=== PATIENT | male | born 1955 | race Native Hawaiian/Other Pacific Islander ===

== ENCOUNTER 2021-08-16 01:40 | Emergency (ER) | payer OTHER ==
[~2021-08-16] VITALS: Ht 182.9 cm; Wt 99.8 kg
[2021-08-16 02:38] LABS: POTASSIUM 4.3 mmol/L (3.6-5.2)
[2021-08-16 02:43] LABS: PLATELET COUNT 277 K/uL (142-355)
[2021-08-16 06:45] VITALS: BP 115/80; TEMP 98
== END 2021-08-16 06:45 | disposition short-term general hospital (02) ==
LOC: EDBD 01:40 → ED 01:40
PROVIDERS: Emergency Medicine Emergency Medical Services
PROC: 0T9B70Z Drainage of Bladder with Drainage Device, Via Natural or Artificial Opening (ICD-10-PCS; principal; 2021-08-16)
PROC: 0BH17EZ Insertion of Endotracheal Airway into Trachea, Via Natural or Artificial Opening (ICD-10-PCS; 2021-08-16)
PROC: 5A1935Z Respiratory Ventilation, Less than 24 Consecutive Hours (ICD-10-PCS; 2021-08-16)
DX: J96.90 Respiratory failure, unspecified, unspecified whether with hypoxia or hypercapnia (principal); J18.9 Pneumonia, unspecified organism; Z11.52 Encounter for screening for COVID-19
CPT/HCPCS: 36415; 36600; 51702; 80053; 82805; 83880; 84484; 85027; 87635; 93005; 94002; 94003; 96360; 96361; 96365; 96366; 96368; 96375; 99285; J0330; J0696; J1815; J1940; J2250; J3490; U0003

== ENCOUNTER 2021-10-05 01:02 | Emergency (ER) | payer OTHER ==
[~2021-10-05] VITALS: Ht 180.3 cm; Wt 88.5 kg
[2021-10-05 01:02] VITALS: TEMP 97.9
[2021-10-05 01:52] LABS: PLATELET COUNT 429 K/uL (142-355)
[2021-10-05 02:04] LABS: POTASSIUM 3.5 mmol/L (3.6-5.2)
[2021-10-05 02:12] LABS: PARTIAL THROMBOPLASTIN TIME 27.2 SECONDS (24.5-33.6)
[2021-10-05 08:30] VITALS: BP 157/88
== END 2021-10-05 08:59 | disposition home or self-care (01) ==
LOC: ED 01:02
PROVIDERS: Hospitalist
DX: J20.9 Acute bronchitis, unspecified (principal); J44.0 Chronic obstructive pulmonary disease with (acute) lower respiratory infection; J44.1 Chronic obstructive pulmonary disease with (acute) exacerbation; F17.210 Nicotine dependence, cigarettes, uncomplicated
CPT/HCPCS: 36415; 80053; 82550; 83880; 84484; 85027; 85610; 85730; 93005; 94664; 96365; 96375; 99284; J0696; J2405; J2930

== ENCOUNTER 2022-01-11 10:18 | Emergency (ER) | payer OTHER ==
[~2022-01-11] VITALS: Ht 180.3 cm; Wt 88.5 kg
[2022-01-11 11:10] LABS: PARTIAL THROMBOPLASTIN TIME 24.1 SECONDS (24.5-33.6); PLATELET COUNT 219 K/uL (142-355)
[2022-01-11 11:18] LABS: POTASSIUM 6.4 mmol/L (3.6-5.2)
[2022-01-11 13:05] VITALS: TEMP 98
[2022-01-11 13:50] VITALS: BP 123/78
== END 2022-01-11 13:52 | disposition short-term general hospital (02) ==
LOC: ED 10:21
PROVIDERS: Emergency Medicine
DX: I21.4 Non-ST elevation (NSTEMI) myocardial infarction (principal); B17.9 Acute viral hepatitis, unspecified; E87.5 Hyperkalemia; R79.89 Other specified abnormal findings of blood chemistry; I69.854 Hemiplegia and hemiparesis following other cerebrovascular disease affecting left non-dominant side; E11.65 Type 2 diabetes mellitus with hyperglycemia; Z79.4 Long term (current) use of insulin; R82.5 Elevated urine levels of drugs, medicaments and biological substances; F14.90 Cocaine use, unspecified, uncomplicated; Y90.0 Blood alcohol level of less than 20 mg/100 ml; I10 Essential (primary) hypertension; Z11.52 Encounter for screening for COVID-19; F17.210 Nicotine dependence, cigarettes, uncomplicated
CPT/HCPCS: 80053; 80307; 80320; 81000; 83880; 84484; 85027; 85379; 85610; 85730; 87077; 87086; 87088; 87186; 87635; 93005; 96374; 96375; 99284; J1815; J3490; U0003

== ENCOUNTER 2022-03-04 14:48 | Emergency (ER) | payer OTHER ==
[~2022-03-04] VITALS: Ht 180.3 cm; Wt 88.5 kg
[2022-03-04 14:51] VITALS: BP 161/106; TEMP 98.7
[2022-03-04 15:22] LABS: PLATELET COUNT 216 K/uL (142-355)
[2022-03-04 15:31] LABS: POTASSIUM 3.7 mmol/L (3.6-5.2)
[2022-03-04 15:37] LABS: PARTIAL THROMBOPLASTIN TIME 27.2 SECONDS (24.5-33.6)
== END 2022-03-04 16:06 | disposition still patient (30) ==
LOC: ED 14:48
PROVIDERS: Hospitalist
DX: J44.1 Chronic obstructive pulmonary disease with (acute) exacerbation (principal); Z53.29 Procedure and treatment not carried out because of patient's decision for other reasons
CPT/HCPCS: 80053; 82550; 83880; 84484; 85027; 85610; 85730; 93005; 94664; 96360; 96374; 96375; 99284; J2930

== ENCOUNTER 2022-03-09 09:10 | Inpatient (IN) | payer OTHER ==
[~2022-03-09] VITALS: Ht 180.3 cm; Wt 84.9 kg
[2022-03-09] VITALS (9 sets, daily range): BP systolic 95–146; BP diastolic 55–99; TEMP 97.7–98.2; Ht 180.3 cm; Wt 84.9 kg
[2022-03-09 10:04] LABS: PLATELET COUNT 230 K/uL (142-355)
[2022-03-09 10:08] LABS: POTASSIUM 3.9 mmol/L (3.6-5.2)
[2022-03-10] VITALS: BP 139/82; TEMP 98.4
[2022-03-10 04:00] VITALS: BP 147/60; TEMP 98.6
[2022-03-10 04:58] LABS: PLATELET COUNT 225 K/uL (142-355)
[2022-03-10 05:25] LABS: POTASSIUM 4.2 mmol/L (3.6-5.2)
[2022-03-10 08:00] VITALS: BP 133/68; TEMP 97.4
[2022-03-10 12:00] VITALS: BP 124/68; TEMP 98
[2022-03-10 16:00] VITALS: BP 114/75; TEMP 97.7
[2022-03-10 20:00] VITALS: BP 128/84; TEMP 98.1
[2022-03-11] VITALS: BP 127/94; TEMP 97.9
[2022-03-11 04:00] VITALS: BP 120/81; TEMP 98
[2022-03-11 12:00] VITALS: BP 150/90; TEMP 97.6
[2022-03-11] MEDS ORDERED: GABA300C2 PO (15:52)
[2022-03-11] MEDS ORDERED: MOBIC15 MG PO (15:54)
[2022-03-11] MEDS ORDERED: LEVALBUTER0.63 MG/3 INH (15:54)
[2022-03-11] MEDS ORDERED: MONTELUKAST SOD10 MG PO (15:55)
[2022-03-11] MEDS ORDERED: STIOLTO RESPIMA1 AER INH (15:59)
[2022-03-11 16:00] VITALS: BP 150/90; TEMP 97.6
[2022-03-11] MEDS ORDERED: THIAMINE PO (16:00)
[2022-03-11] MEDS ORDERED: PRAVASTATIN PO (16:00)
[2022-03-11] MEDS ORDERED: GLIP10TA55 PO (16:01)
[2022-03-11] MEDS ORDERED: BENZONATATE100 MG PO (16:01)
[2022-03-11] MEDS ORDERED: KP FOLIC ACID1 MG PO (16:02)
[2022-03-11] MEDS ORDERED: METF500T PO (16:03)
[2022-03-11] MEDS ORDERED: MAGNESIUM400 M1 PO (16:04)
[2022-03-11] MEDS ORDERED: ALL DAY ALLG10 MG PO (16:04)
[2022-03-11] MEDS ORDERED: PROAIR HFA108 MCG/AC INH (16:05)
[2022-03-11] MEDS ORDERED: CVS OMEPRAZOLE20 MG PO (16:06)
[2022-03-11] MEDS ORDERED: HM ASPIRIN EC325 MG PO (16:06)
[2022-03-11] MEDS ORDERED: MAPAP500 MG PO (16:07)
[2022-03-11] MEDS ORDERED: ELIQUIS5 MG PO (16:08)
[2022-03-11 20:00] VITALS: BP 140/90; TEMP 98.4
[2022-03-12] VITALS: BP 135/98; TEMP 97.78
[2022-03-12 04:00] VITALS: BP 150/97; TEMP 98.2
[2022-03-12 08:00] VITALS: BP 152/97; TEMP 97.5
[2022-03-12 12:00] VITALS: BP 141/83; TEMP 97.7
[2022-03-12 16:10] VITALS: BP 146/87; TEMP 98
[2022-03-12 20:00] VITALS: BP 127/70; TEMP 98
[2022-03-13] VITALS: BP 151/88; TEMP 98.5
[2022-03-13 04:00] VITALS: BP 137/69; TEMP 97.9
[2022-03-13 04:56] LABS: PLATELET COUNT 256 K/uL (142-355)
[2022-03-13 05:04] LABS: POTASSIUM 3.8 mmol/L (3.6-5.2)
[2022-03-13 08:00] VITALS: BP 159/97; TEMP 98
[2022-03-13 12:00] VITALS: BP 151/82; TEMP 97.9
[2022-03-13 16:00] VITALS: BP 146/86; TEMP 98.2
[2022-03-13 20:00] VITALS: BP 121/74; TEMP 98.4
[2022-03-14] VITALS: BP 112/52; TEMP 97.5
[2022-03-14 04:00] VITALS: BP 105/61; TEMP 97.9
[2022-03-14 05:32] LABS: PLATELET COUNT 285 K/uL (142-355)
[2022-03-14 05:45] LABS: POTASSIUM 3.6 mmol/L (3.6-5.2)
[2022-03-14 08:00] VITALS: BP 128/76; TEMP 98.2
[2022-03-14 12:00] VITALS: BP 155/80; TEMP 98.2
[2022-03-14 16:13] VITALS: BP 112/77; TEMP 98.4
[2022-03-14 20:00] VITALS: BP 124/81; TEMP 98.4
[2022-03-15] VITALS: BP 131/72; TEMP 97.9
[2022-03-15 04:00] VITALS: BP 142/54; TEMP 97.7
[2022-03-15 08:00] VITALS: BP 139/67; TEMP 97.9
[2022-03-15] MEDS ORDERED: DIGO0.1230 PO (09:24)
[2022-03-15] MEDS ORDERED: PRED10TA27 PO (09:25)
[2022-03-15] MEDS ORDERED: CARDIZEM LA360 M1 PO (09:26)
[2022-03-15] MEDS ORDERED: CEFD300C2 PO (09:27)
[2022-03-15] MEDS ORDERED: BUDE1AER5 INH (09:28)
[2022-03-15 12:00] VITALS: BP 136/80; TEMP 98.1
[2022-03-15 16:00] VITALS: BP 128/86; TEMP 98.2
[2022-03-15 20:00] VITALS: BP 131/88; TEMP 98.3
[2022-03-16] VITALS: BP 105/66; TEMP 98.5
[2022-03-16 04:00] VITALS: BP 130/78; TEMP 98
== END 2022-03-16 11:00 | disposition home or self-care (01) | DRG 190 ==
LOC: ED 09:10 → MED/SURG 13:29
PROVIDERS: Emergency Medicine Emergency Medical Services; ADMIT Internal Medicine; ATTEND Internal Medicine
DX: J44.1 Chronic obstructive pulmonary disease with (acute) exacerbation (principal); J96.21 Acute and chronic respiratory failure with hypoxia; I69.354 Hemiplegia and hemiparesis following cerebral infarction affecting left non-dominant side; I48.92 Unspecified atrial flutter; I48.0 Paroxysmal atrial fibrillation; J44.0 Chronic obstructive pulmonary disease with (acute) lower respiratory infection; Z79.01 Long term (current) use of anticoagulants; E11.65 Type 2 diabetes mellitus with hyperglycemia; Z79.899 Other long term (current) drug therapy; E83.42 Hypomagnesemia; I10 Essential (primary) hypertension
CPT/HCPCS: 36415; 36600; 80053; 80162; 80307; 81002; 82805; 82948; 83605; 83735; 83880; 84484; 85027; 85379; 87040; 87635; 93005; 94664; 94760; 96360; 96361; 96367; 96372; 96374; 96375; 99284; J0456; J0696; J1815; J1940; J2060; J2920; J2930; J3475; J3490; U0003

== ENCOUNTER 2022-04-19 04:48 | Emergency (ER) | payer OTHER ==
[~2022-04-19] VITALS: Ht 180.3 cm; Wt 86.2 kg
[2022-04-19 04:48] VITALS: TEMP 98.2
[~2022-04-19 04:48] MED LIST: ALL DAY ALLG10 MG PO; BENZONATATE100 MG PO; BUDE1AER5 INH; CARDIZEM LA360 M1 PO; CEFD300C2 PO; CVS OMEPRAZOLE20 MG PO; DIGO0.1230 PO; ELIQUIS5 MG PO; GABA300C2 PO; GLIP10TA55 PO; HM ASPIRIN EC325 MG PO; KP FOLIC ACID1 MG PO; LEVALBUTER0.63 MG/3 INH; MAGNESIUM400 M1 PO; MAPAP500 MG PO; METF500T PO; MOBIC15 MG PO; MONTELUKAST SOD10 MG PO; PRAVASTATIN PO; PRED10TA27 PO; PROAIR HFA108 MCG/AC INH; STIOLTO RESPIMA1 AER INH; THIAMINE PO
[2022-04-19 06:28] LABS: PLATELET COUNT 223 K/uL (142-355)
[2022-04-19 07:26] VITALS: BP 148/73
[2022-04-19 13:05] LABS: PARTIAL THROMBOPLASTIN TIME 27.2 SECONDS (24.5-33.6)
== END 2022-04-19 07:44 | disposition home or self-care (01) ==
LOC: ED 04:48
PROVIDERS: Emergency Medicine Emergency Medical Services
DX: R07.89 Other chest pain (principal); Z91.14 Patient's other noncompliance with medication regimen
CPT/HCPCS: 36415; 80053; 80162; 83735; 84484; 85027; 85610; 85730; 87040; 93005; 96360; 96374; 96375; 99284; J1160

== ENCOUNTER 2022-05-30 15:31 | Emergency (ER) | payer OTHER ==
[~2022-05-30] VITALS: Ht 180.3 cm; Wt 86.2 kg
[2022-05-30 16:30] LABS: PLATELET COUNT 240 K/uL (142-355)
[2022-05-30 16:33] LABS: POTASSIUM 4.6 mmol/L (3.6-5.2)
[2022-05-30 19:12] VITALS: BP 100/61; TEMP 98.4
== END 2022-05-30 19:12 | disposition short-term general hospital (02) ==
LOC: ED 15:31
PROVIDERS: Emergency Medicine Emergency Medical Services
DX: I49.8 Other specified cardiac arrhythmias (principal); I47.29 Other ventricular tachycardia; I48.92 Unspecified atrial flutter
CPT/HCPCS: 36415; 80053; 83735; 84484; 85027; 85610; 85730; 93005; 96360; 96361; 96365; 96375; 99285; J3490

== ENCOUNTER 2022-06-12 09:52 | Observation (INO) | payer OTHER ==
[~2022-06-12] VITALS: Ht 180.3 cm; Wt 88.2 kg
[~2022-06-12 09:52] MED LIST changes: -GLIP10TA55 PO; +GLIPIZIDE PO; -METF500T PO; +METFTAB PO
[2022-06-12 10:02] VITALS: BP 139/84; TEMP 97.5
[2022-06-12 10:40] VITALS: BP 146/83
[2022-06-12 10:44] LABS: PLATELET COUNT 289 K/uL (142-355)
[2022-06-12 11:36] LABS: POTASSIUM 4.3 mmol/L (3.6-5.2)
[2022-06-12 12:15] VITALS: BP 141/74
[2022-06-12 13:47] VITALS: BP 142/78; TEMP 98.7; Ht 180.3 cm; Wt 88.2 kg
[2022-06-12 16:00] VITALS: BP 138/84; TEMP 98
[2022-06-12] MEDS ORDERED: MAGNESIUM OXID400 M1 PO (18:24)
[2022-06-12 19:54] VITALS: BP 13/79; TEMP 98.3
[2022-06-13 00:01] VITALS: BP 134/70; TEMP 98
[2022-06-13 03:56] VITALS: BP 124/78; TEMP 98.3
[2022-06-13 06:32] LABS: PLATELET COUNT 253 K/uL (142-355)
[2022-06-13 06:46] LABS: POTASSIUM 4.6 mmol/L (3.6-5.2)
[2022-06-13 08:00] VITALS: BP 134/70; TEMP 97.9
[2022-06-13] MEDS ORDERED: OMEP20CA PO (08:49)
[2022-06-13] MEDS ORDERED: VITAMIN B COMPLEX PO (08:52)
[2022-06-13] MEDS ORDERED: KLOR-CON M2020 MEQ PO (08:54)
[2022-06-13] MEDS ORDERED: LOSA50TA PO (08:54)
[2022-06-13] MEDS ORDERED: METO50TA63 PO (08:55)
[2022-06-13] MEDS ORDERED: VITAMIN D1000 UNIT PO (08:57)
[2022-06-13] MEDS ORDERED: FURO40TA93 PO (08:58)
[2022-06-13 12:00] VITALS: BP 131/60; TEMP 98.2
[2022-06-13] MEDS ORDERED: AZIT250T3 PO (12:03)
[2022-06-13] MEDS ORDERED: PRED10TA27 PO (12:09)
== END 2022-06-13 13:32 | disposition home or self-care (01) ==
LOC: ED 09:52 → MED/SURG 12:01
PROVIDERS: ADMIT Family Medicine; ATTEND Internal Medicine
DX: J44.1 Chronic obstructive pulmonary disease with (acute) exacerbation (principal); Z72.0 Tobacco use; E53.8 Deficiency of other specified B group vitamins; I25.10 Atherosclerotic heart disease of native coronary artery without angina pectoris; I10 Essential (primary) hypertension; Z86.73 Personal history of transient ischemic attack (TIA), and cerebral infarction without residual deficits; I48.20 Chronic atrial fibrillation, unspecified; Z79.01 Long term (current) use of anticoagulants; E11.42 Type 2 diabetes mellitus with diabetic polyneuropathy; E11.65 Type 2 diabetes mellitus with hyperglycemia; Z51.81 Encounter for therapeutic drug level monitoring
CPT/HCPCS: 36415; 36600; 80053; 80307; 81002; 82550; 82805; 82948; 83880; 85027; 85379; 87635; 93005; 94664; 96360; 96361; 96366; 96367; 96372; 96374; 96375; 96376; 99220; 99284; G0378; J0456; J1644; J1815; J2920; J2930; U0003

== ENCOUNTER 2022-12-05 13:11 | Emergency (ER) | payer OTHER ==
[~2022-12-05] VITALS: Ht 180.3 cm; Wt 95.3 kg
[~2022-12-05 13:11] MED LIST changes: +AZIT250T3 PO; +FURO40TA93 PO; +KLOR-CON M2020 MEQ PO; +LOSA50TA PO; +MAGNESIUM OXID400 M1 PO; +METO50TA63 PO; +OMEP20CA PO; +VITAMIN B COMPLEX PO; +VITAMIN D1000 UNIT PO
[2022-12-05 14:01] LABS: PLATELET COUNT 220 K/uL (142-355)
[2022-12-05 14:06] LABS: POTASSIUM 4.3 mmol/L (3.6-5.2)
[2022-12-05 15:35] VITALS: BP 144/85; TEMP 98.2
== END 2022-12-05 15:35 | disposition home or self-care (01) ==
LOC: ED 13:11
PROVIDERS: Emergency Medicine Emergency Medical Services
DX: S90.415A Abrasion, left lesser toe(s), initial encounter (principal); F17.210 Nicotine dependence, cigarettes, uncomplicated; X58.XXXA Exposure to other specified factors, initial encounter
CPT/HCPCS: 36415; 80048; 85027; 87070; 87077; 87186; 87205; 96365; 99284; J0696

== ENCOUNTER 2022-12-16 13:23 | Emergency (ER) | payer OTHER ==
[~2022-12-16] VITALS: Ht 180.3 cm; Wt 95.3 kg
[2022-12-16 14:58] VITALS: BP 150/76; TEMP 98.1
== END 2022-12-16 15:30 | disposition home or self-care (01) ==
LOC: ED 13:23
DX: M79.672 Pain in left foot (principal); M79.671 Pain in right foot; L08.9 Local infection of the skin and subcutaneous tissue, unspecified
CPT/HCPCS: 99283; J1885

== ENCOUNTER 2022-12-31 10:01 | Emergency (ER) | payer OTHER ==
[~2022-12-31] VITALS: Ht 180.3 cm; Wt 90.7 kg
[2022-12-31 10:01] VITALS: TEMP 97.3
[2022-12-31 10:45] LABS: PLATELET COUNT 249 K/uL (142-355)
[2022-12-31 10:57] LABS: POTASSIUM 3.8 mmol/L (3.6-5.2)
[2022-12-31 12:50] VITALS: BP 141/80
== END 2022-12-31 15:50 | disposition home or self-care (01) ==
LOC: ED 10:01
PROVIDERS: Emergency Medicine
DX: M79.605 Pain in left leg (principal); M79.604 Pain in right leg; L97.429 Non-pressure chronic ulcer of left heel and midfoot with unspecified severity; E11.65 Type 2 diabetes mellitus with hyperglycemia; I10 Essential (primary) hypertension; F17.210 Nicotine dependence, cigarettes, uncomplicated; I63.9 Cerebral infarction, unspecified
CPT/HCPCS: 36415; 80053; 80307; 80320; 83605; 85027; 99283

== ENCOUNTER 2023-01-11 15:50 | Emergency (ER) | payer OTHER ==
[~2023-01-11] VITALS: Ht 180.3 cm; Wt 72.6 kg
[2023-01-11 15:50] VITALS: BP 92/62; TEMP 99.7
== END 2023-01-11 17:24 | disposition home or self-care (01) ==
LOC: ED 15:50
DX: L97.429 Non-pressure chronic ulcer of left heel and midfoot with unspecified severity (principal)
CPT/HCPCS: 99283